=== PATIENT | male | born 1965 | race Caucasian/White ===

== ENCOUNTER → 2025-06-18 13:40 | Outpatient (CLI) | payer OTHER, SELFPAY ==
--- NOTE | 2025-06-18 13:48 | DI.RAD.S_ITS ---
PROCEDURE: XR LUMBAR SPINE MIN 4V INDICATIONS: please evaluate for lumbar and rib fracture TECHNIQUE: 5 views of the lumbar spine were acquired, including bilateral oblique views. COMPARISON: [facility], CR, XR RIBS LT MIN 3V W CXR1V, 06/18/2025, 13:49. FINDINGS: Bones: 5 nonrib-bearing vertebrae are present. There is normal bony alignment. No vertebral body compression fractures. No suspicious bony lesions. Multiple levels of degenerative change can be seen, including significant bridging endplate osteophytes on the left at the L2-L3 level. The disc heights are relatively well preserved. Lower lumbar spine facet arthropathy is seen. Soft tissues: Overlying bowel gas pattern is normal. No suspicious soft tissue calcifications. Atherosclerotic calcification is noted. Oblique images: No pars defects. IMPRESSION: No edith acute plain film abnormality is seen. Generalized degenerative changes are seen by plain film. Dictated by: Los Godoy M.D. on 06/18/2025 at 13:59 Approved by: Los Godoy M.D. on 06/18/2025 at 14:00
--- NOTE | 2025-06-18 13:48 | DI.RAD.S_ITS ---
PROCEDURE: XR RIBS LT MIN 3V W CXR1V INDICATIONS: Please evaluate for lumbar and rib fracture TECHNIQUE: 2 views of the ribs were acquired, along with a single view chest. COMPARISON: [facility], , XR LUMBAR SPINE MIN 4V, 06/18/2025, 13:49. FINDINGS: Surgical changes and devices: None. Bones and chest wall: A marker is placed upon the area of clinical concern. Within this region, no displaced rib fracture or other significant rib abnormality can be seen. No rib fractures are seen elsewhere. No suspicious bony lesions. Age-appropriate bony degenerative changes are seen. Overlying soft tissues appear unremarkable. Lungs and pleura: No pleural effusions or pneumothorax. Lungs appear clear. Mediastinum: Mediastinal contours appear normal. Heart size is normal. IMPRESSION: No displaced rib fracture or pneumothorax. Dictated by: Los Godoy M.D. on 06/18/2025 at 14:00 Approved by: Los Godoy M.D. on 06/18/2025 at 14:00
== END ==
PROVIDERS: Referring Provider Chiropractor; Visit Provider Chiropractor
DX: S30.0XXA Contusion of lower back and pelvis, initial encounter (principal); S29.8XXA Other specified injuries of thorax, initial encounter; M47.816 Spondylosis without myelopathy or radiculopathy, lumbar region; X58.XXXA Exposure to other specified factors, initial encounter
CPT/HCPCS: 71101; 72110

== ENCOUNTER → 2025-09-26 10:02 | Outpatient (CLI) | payer BC, SELFPAY | PROVIDERS: Family Provider Family Medicine; PCP Family Medicine; Referring Provider Family Medicine; Visit Provider Surgery | DX: T81.89XA Other complications of procedures, not elsewhere classified, initial encounter (principal); T86.828 Other complications of skin graft (allograft) (autograft); S81.802A Unspecified open wound, left lower leg, initial encounter; S01.401A Unspecified open wound of right cheek and temporomandibular area, initial encounter; C41.1 Malignant neoplasm of mandible | CPT/HCPCS: 11042; 11045; 87070; 87075; 87077; 87186; 87205; 99204; 99213 ==

== ENCOUNTER → 2025-09-27 10:30 | Outpatient (CLI) | payer BC, SELFPAY | PROVIDERS: Family Provider Family Medicine; PCP Family Medicine; Referring Provider Family Medicine; Visit Provider Physician Assistant | DX: T81.89XA Other complications of procedures, not elsewhere classified, initial encounter (principal); S01.402A Unspecified open wound of left cheek and temporomandibular area, initial encounter; S81.802A Unspecified open wound, left lower leg, initial encounter | CPT/HCPCS: 99213 ==

== ENCOUNTER → 2025-10-01 09:11 | Outpatient (CLI) | payer BC, SELFPAY | LOC: WC 09:12 | PROVIDERS: Family Provider Family Medicine; PCP Family Medicine; Referring Provider Family Medicine; Visit Provider Surgery | DX: T81.89XA Other complications of procedures, not elsewhere classified, initial encounter (principal); S01.402A Unspecified open wound of left cheek and temporomandibular area, initial encounter; S81.802A Unspecified open wound, left lower leg, initial encounter | CPT/HCPCS: 99213 ==

== ENCOUNTER → 2025-10-02 09:54 | Outpatient (CLI) | payer BC, SELFPAY | LOC: WC 10:14 | PROVIDERS: Family Provider Family Medicine; PCP Family Medicine; Referring Provider Family Medicine; Visit Provider Surgery | DX: T86.828 Other complications of skin graft (allograft) (autograft) (principal); S11.80XA Unspecified open wound of other specified part of neck, initial encounter; S81.802A Unspecified open wound, left lower leg, initial encounter; C41.1 Malignant neoplasm of mandible | CPT/HCPCS: 11042; 11045 ==

== ENCOUNTER → 2025-10-04 10:55 | Outpatient (CLI) | payer BC, SELFPAY | LOC: WC 10:56 | PROVIDERS: Family Provider Family Medicine; PCP Family Medicine; Referring Provider Family Medicine; Visit Provider Physician Assistant | DX: T81.89XA Other complications of procedures, not elsewhere classified, initial encounter (principal); S81.802A Unspecified open wound, left lower leg, initial encounter; S11.80XA Unspecified open wound of other specified part of neck, initial encounter | CPT/HCPCS: 99213 ==

== ENCOUNTER → 2025-10-07 10:50 | Outpatient (CLI) | payer BC, SELFPAY | LOC: WC 10:51 | PROVIDERS: PCP Family Medicine; Referring Provider Family Medicine; Visit Provider Surgery | DX: T81.89XA Other complications of procedures, not elsewhere classified, initial encounter (principal); S11.80XA Unspecified open wound of other specified part of neck, initial encounter; S81.802A Unspecified open wound, left lower leg, initial encounter | CPT/HCPCS: 99212 ==

== ENCOUNTER → 2025-10-08 10:01 | Outpatient (CLI) | payer BC, SELFPAY | LOC: WC 10:02 | PROVIDERS: PCP Family Medicine; Referring Provider Family Medicine; Visit Provider Surgery | DX: T81.89XA Other complications of procedures, not elsewhere classified, initial encounter (principal); S11.80XA Unspecified open wound of other specified part of neck, initial encounter; S81.801A Unspecified open wound, right lower leg, initial encounter | CPT/HCPCS: 99213 ==

== ENCOUNTER → 2025-10-09 11:58 | Outpatient (CLI) | payer BC, SELFPAY | LOC: WC 11:59 | PROVIDERS: PCP Family Medicine; Referring Provider Family Medicine; Visit Provider Surgery | DX: T81.89XA Other complications of procedures, not elsewhere classified, initial encounter (principal); S11.80XA Unspecified open wound of other specified part of neck, initial encounter; S81.802A Unspecified open wound, left lower leg, initial encounter; T86.828 Other complications of skin graft (allograft) (autograft); C41.1 Malignant neoplasm of mandible | CPT/HCPCS: 11042; 11045 ==

== ENCOUNTER → 2025-10-10 10:33 | Outpatient (CLI) | payer BC, SELFPAY | LOC: WC 10:34 | PROVIDERS: PCP Family Medicine; Referring Provider Family Medicine; Visit Provider Surgery | DX: T81.89XA Other complications of procedures, not elsewhere classified, initial encounter (principal); S11.80XA Unspecified open wound of other specified part of neck, initial encounter; S81.802A Unspecified open wound, left lower leg, initial encounter | CPT/HCPCS: 99212 ==

== ENCOUNTER → 2025-10-11 13:04 | Outpatient (CLI) | payer BC, SELFPAY | LOC: WC 13:05 | PROVIDERS: PCP Family Medicine; Referring Provider Family Medicine; Visit Provider Physician Assistant | DX: T81.89XA Other complications of procedures, not elsewhere classified, initial encounter (principal); S11.80XA Unspecified open wound of other specified part of neck, initial encounter; S81.802A Unspecified open wound, left lower leg, initial encounter | CPT/HCPCS: 99213 ==

== ENCOUNTER → 2025-10-14 15:04 | Outpatient (CLI) | payer BC, SELFPAY | LOC: WC 15:06 | PROVIDERS: PCP Family Medicine; Referring Provider Family Medicine; Visit Provider Surgery | DX: T81.89XA Other complications of procedures, not elsewhere classified, initial encounter (principal); S11.80XA Unspecified open wound of other specified part of neck, initial encounter; S81.802A Unspecified open wound, left lower leg, initial encounter | CPT/HCPCS: 99213 ==

== ENCOUNTER → 2025-10-15 10:18 | Outpatient (CLI) | payer BC, SELFPAY | LOC: WC 10:18 | PROVIDERS: PCP Family Medicine; Referring Provider Family Medicine; Visit Provider Surgery | DX: T81.89XA Other complications of procedures, not elsewhere classified, initial encounter (principal); T86.828 Other complications of skin graft (allograft) (autograft); S11.80XA Unspecified open wound of other specified part of neck, initial encounter; S81.802A Unspecified open wound, left lower leg, initial encounter; L92.8 Other granulomatous disorders of the skin and subcutaneous tissue; C41.1 Malignant neoplasm of mandible | CPT/HCPCS: 11042; 11045 ==

== ENCOUNTER → 2025-10-16 15:21 | Outpatient (CLI) | payer BC, SELFPAY ==
[2025-10-16 15:48] LABS: Add Manual Diff / Slide Review NO; Hematocrit 39.3 % (41-53); Hemoglobin 13.6 g/dL (13.5-17.5); Lymphocytes Absolute Auto 1600 /uL (1100-4500); Mean Corpuscular HGB Conc 34.6 % (30-36); Mean Corpuscular Hemoglobin 33.3 PG (26-34); Mean Corpuscular Volume 96.3 fL (80-100); Platelet Count 370 X10^3/uL (150-400)
[2025-10-16 17:59] LABS: Carcinoembryonic Antigen 1.6 ng/mL (0.1-3.0)
== END ==
PROVIDERS: PCP Family Medicine; Referring Provider Internal Medicine Hematology & Oncology; Visit Provider Internal Medicine Hematology & Oncology
DX: C06.9 Malignant neoplasm of mouth, unspecified (principal); C20 Malignant neoplasm of rectum
CPT/HCPCS: 36415; 82378; 85025

== ENCOUNTER → 2025-10-21 15:10 | Outpatient (CLI) | payer BC, SELFPAY | LOC: WC 15:11 | PROVIDERS: PCP Family Medicine; Referring Provider Family Medicine; Visit Provider Surgery | DX: S11.80XA Unspecified open wound of other specified part of neck, initial encounter (principal); S81.802A Unspecified open wound, left lower leg, initial encounter; T81.89XA Other complications of procedures, not elsewhere classified, initial encounter; T86.828 Other complications of skin graft (allograft) (autograft); L02.91 Cutaneous abscess, unspecified; C41.1 Malignant neoplasm of mandible; L53.8 Other specified erythematous conditions | CPT/HCPCS: 10140; 11042; 11045; 87070; 87075; 87205 ==

== ENCOUNTER → 2025-10-24 08:59 | Outpatient (CLI) | payer BC, SELFPAY | PROVIDERS: PCP Family Medicine; Referring Provider Family Medicine; Visit Provider Surgery | DX: S11.80XA Unspecified open wound of other specified part of neck, initial encounter (principal); S81.802A Unspecified open wound, left lower leg, initial encounter; T86.828 Other complications of skin graft (allograft) (autograft); L02.11 Cutaneous abscess of neck; C41.1 Malignant neoplasm of mandible; L53.8 Other specified erythematous conditions; R60.0 Localized edema | CPT/HCPCS: 11042; 11045; 99213 ==

== ENCOUNTER → 2025-10-31 11:34 | Outpatient (CLI) | payer BC, SELFPAY | LOC: WC 11:35 | PROVIDERS: PCP Family Medicine; Referring Provider Family Medicine; Visit Provider Surgery | DX: T81.89XA Other complications of procedures, not elsewhere classified, initial encounter (principal); L98.8 Other specified disorders of the skin and subcutaneous tissue; S81.802A Unspecified open wound, left lower leg, initial encounter; L02.11 Cutaneous abscess of neck; L53.9 Erythematous condition, unspecified; T86.828 Other complications of skin graft (allograft) (autograft) | CPT/HCPCS: 11042; 11045; 87070; 87075; 87077; 87186; 87205 ==

== ENCOUNTER → 2025-11-02 13:44 | Outpatient (CLI) | payer BC, SELFPAY ==
--- NOTE | 2025-11-02 13:45 | DI.CT.S_ITS ---
PROCEDURE: CT SOFT TISSUE NECK W CON INDICATIONS: swelling/abscess of anterior neck TECHNIQUE: After the administration of intravenous contrast, 3.0 mm axial sections acquired from the sella to the aortic arch. Additional oblique axial 3.0 mm sections acquired through the pharynx. 3 mm thick coronal and sagittal reformats were generated. For radiation dose reduction, the following was used: automated exposure control. COMPARISON: Outside Film, CT, CT SOFT TISSUE NECK WITH CONTRAST, 07/21/2025, 8:47. Outside Film, CT, CT CHEST WITH CONTRAST, 09/19/2025, 13:58. FINDINGS: Image quality: Excellent. Lymph nodes: Soft tissue nodule adjacent to the left ernestine mandible measuring 1.8 x 1.8 cm (). Right lower cervical level 4 lymph node measuring 1.5 cm in short axis is new compared to prior. Vessels: Visualized vasculature appears patent. Neck spaces: Significant postsurgical changes within the left neck. There is associated subcutaneous stranding and soft tissue thickening/scarring. Areas of hypoattenuation within the left muscles of mastication, best seen on coronal series 4, image 30. Ill-defined focus of hypoattenuation within the left sternocleidomastoid muscle (01/15) measuring up to 1 cm. The oropharynx, nasopharynx, and pharynx demonstrate no mucosal lesions. The vocal cords, false vocal cords, pyriform sinuses, epiglottis, vallecula, and tongue base all appear normal. Glands: The parotid and submandibular glands appear normal. Thyroid gland demonstrates no significant abnormality. Miscellaneous: Visualized brain and orbits appear normal. Lung apices demonstrate multifocal pulmonary nodules measure up to 1.4 cm. Increased in size compared to prior. Superficial soft tissues appear normal. Bones: There is been interval postsurgical changes from left mandibulectomy with fibular reconstruction. Old left lamina papyracea fracture. Mild sinus disease. Left mastoid air cell effusion. . IMPRESSION: Significant postsurgical changes in the left neck with mandibulectomy and fibular reconstruction. Associated subcutaneous stranding throughout the left neck which may be postsurgical in etiology. Ill-defined areas of low density within the muscles of mastication, unclear if this represents edema, postoperative changes or phlegmon. Attention on follow-up imaging. Scarring and postoperative changes in the left neck limits evaluation for recurrent disease. There is a 1.8 cm mass adjacent to the ernestine mandible concerning for recurrent disease or lymphadenopathy. Right cervical level 4 lymph node measuring 1.5 cm in short axis is new and concerning for metastatic disease. Additional area of hypoattenuation within the left superior sternocleidomastoid, attention on follow-up. Multifocal pulmonary nodules are increased in size compared to prior. Dictated by: Bernardo Felipe M.D. on 11/04/2025 at 13:27 Approved by: Bernardo Felipe M.D. on 11/04/2025 at 13:42
== END ==
LOC: CT 13:45
PROVIDERS: PCP Family Medicine; Referring Provider Family Medicine; Visit Provider Surgery
DX: C41.1 Malignant neoplasm of mandible (principal); L02.91 Cutaneous abscess, unspecified; R59.0 Localized enlarged lymph nodes; R91.8 Other nonspecific abnormal finding of lung field
CPT/HCPCS: 70491; Q9967

== ENCOUNTER 2025-11-04 10:11 | Emergency (ER) | payer BC, SELFPAY ==
[2025-11-04] VITALS (11 sets, daily range): BP systolic 103–132; BP diastolic 65–73; PULSE 52–83; RESP 12–21; TEMP 36.3; O2SAT 91–98
--- NOTE | 2025-11-04 10:41 | EKG_ITS ---
[facility] [address] [address] Test Date: 2025-11-04 Pat Name: Vahid Morris Department: [facility] Room: Gender: Male [employer]aging [employer] Operator: JUSTICE : 1965 Requested By: Order Number: [id number] Reading MD: Javier Valencia MD Measurements Intervals Carver Rate: 75 P: 60 NH: 154 QRS: 19 QRSD: 96 T: 51 QT: 368 QTc: 410 Interpretive Statements Normal sinus rhythm with sinus arrhythmia Electronically Signed On 11-04-2025 14:34:57 PST by Javier Valencia MD
--- NOTE | 2025-11-04 10:41 | DI.RAD.S_ITS ---
PROCEDURE: XR CHEST 1V INDICATIONS: Chest Pain TECHNIQUE: One view of the chest was acquired. COMPARISON: None. FINDINGS: Surgical changes and devices: Right chest wall Port-A-Cath. Lungs and pleura: Lungs are clear. No pleural effusions or pneumothorax. Mediastinum: Mediastinal contours appear normal. Heart size is normal. Bones and chest wall: No suspicious bony lesions. Overlying soft tissues appear unremarkable. IMPRESSION: No acute cardiopulmonary abnormality is seen. Dictated by: Bernardo Felipe M.D. on 11/04/2025 at 12:17 Approved by: Bernardo Felipe M.D. on 11/04/2025 at 12:17
--- NOTE | 2025-11-04 10:41 | PC.NURSE ---
Patient denies chest pain or shortness of breath at this time. I spoke with Dr. Evans who gave verbal order for cardiac workup.
[2025-11-04 11:04] LABS: Add Manual Diff / Slide Review NO; Hematocrit 41.5 % (41-53); Hemoglobin 14.4 g/dL (13.5-17.5); Lymphocytes Absolute Auto 1400 /uL (1100-4500); Mean Corpuscular HGB Conc 34.6 % (30-36); Mean Corpuscular Hemoglobin 32.8 PG (26-34); Mean Corpuscular Volume 94.8 fL (80-100); Platelet Count 367 X10^3/uL (150-400)
[2025-11-04 11:22] LABS: INR 1.0 (0.9-1.3); Prothrombin Time 11.8 SECONDS (9.4-12.5)
[2025-11-04 11:24] LABS: Alanine Aminotransferase 14 IU/L (<50); Alkaline Phosphatase 66 U/L (38-126); Blood Urea Nitrogen 17 mg/dL (9-20); Carbon Dioxide 27 mmol/L (22-32); Creatine Kinase 23 U/L (55-170); Estimated Glomerular Filt Rate > 60 mL/min (>60); HEMOLYSIS < 15 (0-50); PTT Partial Thromboplastin Tim 29 SECONDS (25.1-36.5)
[2025-11-04 11:27] LABS: Albumin 4.0 g/dL (3.5-5.0); Albumin Globulin Ratio 1.3 (1.0-2.8); Calcium 10.5 mg/dL (8.4-10.2); Chloride 100 mmol/L (98-107); Globulin 3.2 g/dL (1.7-4.1); Glucose 124 mg/dL (70-99); Lipase 37 U/L (23-300); Magnesium 2.0 mg/dL (1.6-2.3); Potassium 4.2 mmol/L (3.4-5.1); Sodium 136 mmol/L (137-145); Total Protein 7.2 g/dL (6.3-8.2)
--- NOTE | 2025-11-04 11:30 | ED_ITS ---
HPI - General Adult <Keon Bowling PA-C - Last Filed: 11/11/25 12:25> General Chief complaint: Dental/Oral Stated complaint: Right side jaw pain, Cancer patient Time Seen by Provider: 11/04/25 11:09 History of Present Illness HPI narrative: 60-year-old male with past medical history oral cancer, colorectal cancer, lung cancer presents to the ED with 10 days of right-sided dental pain. Patient localizes the pain to the right, upper, molar gum. No fever, chills, chest pain, shortness of breath, lightheadedness, dizziness, syncope. Patient is in significant pain. Patient states he occasionally takes hydrocodone, but mostly just takes Tylenol. Patient was wanting to go see a dentist today, however his family convinced him to come into the emergency department for further evaluation. Patient states that he has had intermittent shortness of breath, which he attributes to swelling from his left mouth and jaw, secretions. However, his shortness of breath resolves when those symptoms resolve as well. Patient is status post a left mandibulectomy that was performed in August. Patient is seen by wound care, a culture of the wound was obtained since there was a lump that developed on the right side of the neck incision. Culture grew Staphylococcus epidermidis. Patient also had a outpatient CT scan soft tissue neck 2 days ago, which Radiology is currently reading.. Related Data Home Medications ?Medication ?Instructions ?Recorded ?Confirmed doxycycline monohydrate 100 mg 100 mg PO BID 10/07/25 10/07/25 tablet oxycodone 5 mg tablet 5 mg PO 4XD PRN 10/07/25 Previous Rx's ?Medication ?Instructions ?Recorded hydrocodone 5 mg-acetaminophen 325 1 tab PO Q8H PRN erma tucker #30 tabs 08/29/25 mg tablet Disabled Parking Permit #1 ea 10/02/25 amoxicillin 875 mg-potassium 1 tab feeding tube Q12H 1 4 days 11/04/25 clavulanate 125 mg tablet #28 tabs hydromorphone 2 mg tablet 2 mg PO Q6H #30 tabs 5 (Dilaudid) ondansetron 4 mg disintegrating 4 mg PO Q6H PRN nausea and 11/07/25 tablet vomiting #30 tabs Allergies Allergy/AdvReac Type Severity Reaction Status Date / Time No Known Drug Allergies Allergy Verified 11/04/25 10:32 Review of Systems <Keon Bowling PA-C - Last Filed: 11/11/25 12:25> Constitutional Constitutional: Denies chills, Denies fatigue, Denies fever(s), Denies frequent falls, Denies lethargy and Denies weakness Comments: R sided jaw pain Eyes Eyes: Denies change in vision, Denies eye discharge, Denies irritation and Denies loss of vision ENT Ears, Nose, Mouth, and Throat: Denies change in voice, Denies dizziness, Denies neck pain, Denies sore throat and Denies throat swelling Cardiovascular Cardiovascular: Denies chest pain, Denies irregular heart rhythm, Denies lightheadedness, Denies palpitations, Denies dyspnea, Denies dyspnea on exertion and Denies orthopnea Respiratory Respiratory: Denies cough, Denies dyspnea, Denies dyspnea on exertion and Denies wheezing Gastrointestinal Gastrointestinal: Denies abdominal pain, Denies change in bowel habits, Denies diarrhea, Denies nausea and Denies vomiting Musculoskeletal Musculoskeletal: Denies neck pain and Denies numbness Integumentary/Breasts Skin/Breast: Denies pruritus, Denies erythema, Denies rash and Denies wounds Neurologic Neurologic: Denies behavioral changes, Denies confusion, Denies dizziness, Denies frequent falls, Denies loss of vision, Denies numbness and Denies weakness Psychiatric Psychiatric: Denies anxiety, Denies behavioral changes, Denies confusion, Denies depression, Denies homicidal ideation and Denies suicidal ideation Endocrine Endocrine: Denies fatigue, Denies flushing and Denies palpitations Hematologic/Lymphatic Hematologic/Lymphatic: Denies easy bruising Allergic/Immunologic Allergic/Immunologic: Denies urticaria, Denies throat swelling and Denies wheezing Patient History <Keon Bowling PA-C - Last Filed: 11/11/25 12:25> Smoking Status: Never smoker Exam <Keon Bowling PA-C - Last Filed: 11/11/25 12:25> Narrative Exam Narrative: Const General:?cooperative, healthy appearing and comfortable [facility] Head:?normal to inspection Ears:?hearing grossly normal bilaterally Nose:?external nose normal Face and sinus:? Patient is status post left jaw mandibulectomy. There is some swelling of the left jaw and left lips. Airway is patent. Mouth:?oral mucosae normal; no notable abscess, dental injuries in the right upper mouth. Throat:?posterior oropharynx normal Eyes General:?appearance normal, both eyes and all related structures Neck Neck:?normal visual inspection and no lymphadenopathy noted Resp Effort & Inspection:?normal respiratory effort Auscultation:?clear to auscultation bilaterally Cardio Rate:?regular rate Rhythm:?regular rhythm Integumentary There is a small bump on the right aspect of the neck incision. Unclear if abscess versus serous collection. Neuro General:?patient alert, patient awake and patient oriented x3 Initial Vital Signs Initial Vital Signs: Vital Signs Temperature 97.4 F L 11/04/25 10:28 Pulse Rate 83 11/04/25 10:28 Respiratory Rate 17 11/04/25 10:28 Blood Pressure 132/72 11/04/25 10:28 Pulse Oximetry 97 11/04/25 10:28 Oxygen Delivery Method Room Air 11/04/25 10:28 <Fartun Dukes MD - Last Filed: 11/05/25 02:08> Initial Vital Signs Initial Vital Signs: Vital Signs Temperature 97.4 F L 11/04/25 10:28 Pulse Rate 83 11/04/25 10:28 Respiratory Rate 17 11/04/25 10:28 Blood Pressure 132/72 11/04/25 10:28 Pulse Oximetry 97 11/04/25 10:28 Oxygen Delivery Method Room Air 11/04/25 10:28 Course <Keon Bowling PA-C - Last Filed: 11/11/25 12:25> Orders Ordered: Discontinued Medications Hydromorphone HCl (Hydromorphone 1 Mg/Ml Syringe) 1 mg IV NOW ONE Stop: 11/04/25 12:07 Last Admin: 11/04/25 12:22 Dose: 1 mg Documented By: LM Hydromorphone HCl (Hydromorphone 1 Mg/Ml Syringe) 1 mg IV NOW ONE Stop: 11/04/25 16:52 Last Admin: 11/04/25 17:28 Dose: 1 mg Documented By: BULL Vital Signs Vital signs: Vital Signs - 8 hr 11/04/25 10:28 11/04/25 10:46 11/04/25 10:49 Temperature 97.4 F L Pulse Rate 83 69 71 Respiratory Rate 17 20 Blood Pressure 132/72 Pulse Oximetry 97 94 94 Oxygen Delivery Method Room Air 11/04/25 10:49 11/04/25 11:00 11/04/25 11:00 Temperature Pulse Rate 75 Respiratory Rate 21 Blood Pressure 114/73 119/72 Pulse Oximetry 94 Oxygen Delivery Method <Fartun Dukes MD - Last Filed: 11/05/25 02:08> Orders Ordered: Discontinued Medications Hydromorphone HCl (Hydromorphone 1 Mg/Ml Syringe) 1 mg IV NOW ONE Stop: 11/04/25 12:07 Last Admin: 11/04/25 12:22 Dose: 1 mg Documented By: LM Hydromorphone HCl (Hydromorphone 1 Mg/Ml Syringe) 1 mg IV NOW ONE Stop: 11/04/25 16:52 Last Admin: 11/04/25 17:28 Dose: 1 mg Documented By: BULL Vital Signs Vital signs: Vital Signs - 8 hr 11/04/25 10:28 11/04/25 10:46 11/04/25 10:49 Temperature 97.4 F L Pulse Rate 83 69 71 Respiratory Rate 17 20 Blood Pressure 132/72 Pulse Oximetry 97 94 94 Oxygen Delivery Method Room Air 11/04/25 10:49 11/04/25 11:00 11/04/25 11:00 Temperature Pulse Rate 75 Respiratory Rate 21 Blood Pressure 114/73 119/72 Pulse Oximetry 94 Oxygen Delivery Method Medical Decision Making <Keon Bowling PA-C - Last Filed: 11/11/25 12:25> Lab Data 11/04/25 10:55 11/04/25 10:55 Labs: Lab Results 11/04/25 Range/Units 10:55 WBC 8.5 (4.5-11.0) X10^3/uL RBC 4.38 L (4.5-5.9) X10^6/uL Hgb 14.4 (13.5-17.5) g/dL Hct 41.5 (41-53) % MCV 94.8 (80-100) fL MCH 32.8 (26-34) PG MCHC 34.6 (30-36) % RDW 14.0 (11.6-14.8) % Plt Count 367 (150-400) X10^3/uL Neut % (Auto) 69.7 (50-75) % Lymph % (Auto) 16.9 L (25-40) % [place] % (Auto) 10.4 (3-14) % Eos % (Auto) 2.3 (2-4) % Baso % (Auto) 0.7 (0-2) % Neut # (Auto) 6000 (5843-3574) /uL Lymph # (Auto) 1400 (4191-2714) /uL [place] # (Auto) 900 (0-900) /uL Eos # (Auto) 200 (0-450) /uL Baso # (Auto) 100 (0-100) /uL PT 11.8 (9.4-12.5) SECONDS INR 1.0 (0.9-1.3) APTT 29 (25.1-36.5) SECONDS Sodium 136 L (137-145) mmol/L Potassium 4.2 (3.4-5.1) mmol/L Chloride 100 (98-107) mmol/L Carbon Dioxide 27 (22-32) mmol/L BUN 17 (9-20) mg/dL Creatinine 0.55 L (0.66-1.25) mg/dL Estimated GFR > 60 (>60) mL/min BUN/Creatinine Ratio 30.9 H (6-22) Glucose 124 H (70-99) mg/dL Calcium 10.5 H (8.4-10.2) mg/dL Magnesium 2.0 (1.6-2.3) mg/dL Total Bilirubin 0.3 (0.2-1.3) mg/dL AST 21 (17-59) IU/L ALT 14 (<50) IU/L Alkaline Phosphatase 66 (38-126) U/L Total Creatine Kinase 23 L (55-170) U/L Troponin I < 0.012 (0.01-0.034) ng/mL NT-Pro-B Natriuret Pep 63 (<125) pg/mL Total Protein 7.2 (6.3-8.2) g/dL Albumin 4.0 (3.5-5.0) g/dL Globulin 3.2 (1.7-4.1) g/dL Albumin/Globulin Ratio 1.3 (1.0-2.8) Lipase 37 (23-300) U/L [facility] Narrative Medical decision making narrative: 60-year-old male with past medical history oral cancer, colorectal cancer, lung cancer presents to the ED with 10 days of right-sided dental pain. Today's CT scan read from Radiology as follows: There appears to be a small skin defect within the submandibular soft tissues near midline with hyperdense material (2/57), this is new compared to recent prior. Recommend correlation with physical exam. Otherwise, no significant change is appreciated compared to recent prior CT from 11/02/2025. Again seen significant postsurgical changes within the left face with mandibulectomy and fibular reconstruction. Soft tissue nodule adjacent to the reconstruction concerning for lymphadenopathy or residual disease. Again seen areas of low attenuation in the left muscles of mastication which may represent edema, postsurgical changes or phlegmon. These are stable compared to prior. Again seen right lower cervical lymph node measuring 1.5 cm in short axis (255) which is new compared to or distant priors and concerning for metastatic disease. Attention on follow-up. Again seen multifocal pulmonary nodules which are also increased. CT scan obtained on 11/02/2025 was read by Radiology as follows. Significant postsurgical changes in the left neck with mandibulectomy and fibular reconstruction. Associated subcutaneous stranding throughout the left neck which may be postsurgical in etiology. Ill-defined areas of low density within the muscles of mastication, unclear if this represents edema, postoperative changes or phlegmon. Attention on follow-up imaging. Scarring and postoperative changes in the left neck limits evaluation for recurrent disease. There is a 1.8 cm mass adjacent to the ernestine mandible concerning for recurrent disease or lymphadenopathy. Right cervical level 4 lymph node measuring 1.5 cm in short axis is new and concerning for metastatic disease. Additional area of hypoattenuation within the left superior sternocleidomastoid, attention on follow-up. Multifocal pulmonary nodules are increased in size compared to prior. Labs were obtained, labs unremarkable. Given patient's symptoms of increased pain and CT changes, patient's oncologist Dr. Garland was consulted. Spoke on the telephone with Dr. Chun's colleague Dr. Shahid who is motion picture narrator today. He advises p.o. antibiotics and outpatient follow-up with Dr. Chun and his oral surgeon at [facility] as soon as possible. While patient was being discharged, Dr. Garland also telephoned and is in agreement with the plan. Antibiotics prescribed. Recommend patient continue taking pain medication for pain control. ED return precautions discussed with patient. He verbalized understanding. Medical records reviewed: Yes <Fartun Dukes MD - Last Filed: 11/05/25 02:08> Lab Data Labs: Lab Results 11/04/25 Range/Units 10:55 WBC 8.5 (4.5-11.0) X10^3/uL RBC 4.38 L (4.5-5.9) X10^6/uL Hgb 14.4 (13.5-17.5) g/dL Hct 41.5 (41-53) % MCV 94.8 (80-100) fL MCH 32.8 (26-34) PG MCHC 34.6 (30-36) % RDW 14.0 (11.6-14.8) % Plt Count 367 (150-400) X10^3/uL Neut % (Auto) 69.7 (50-75) % Lymph % (Auto) 16.9 L (25-40) % [place] % (Auto) 10.4 (3-14) % Eos % (Auto) 2.3 (2-4) % Baso % (Auto) 0.7 (0-2) % Neut # (Auto) 6000 (5045-2707) /uL Lymph # (Auto) 1400 (3793-2056) /uL [place] # (Auto) 900 (0-900) /uL Eos # (Auto) 200 (0-450) /uL Baso # (Auto) 100 (0-100) /uL PT 11.8 (9.4-12.5) SECONDS INR 1.0 (0.9-1.3) APTT 29 (25.1-36.5) SECONDS Sodium 136 L (137-145) mmol/L Potassium 4.2 (3.4-5.1) mmol/L Chloride 100 (98-107) mmol/L Carbon Dioxide 27 (22-32) mmol/L BUN 17 (9-20) mg/dL Creatinine 0.55 L (0.66-1.25) mg/dL Estimated GFR > 60 (>60) mL/min BUN/Creatinine Ratio 30.9 H (6-22) Glucose 124 H (70-99) mg/dL Calcium 10.5 H (8.4-10.2) mg/dL Magnesium 2.0 (1.6-2.3) mg/dL Total Bilirubin 0.3 (0.2-1.3) mg/dL AST 21 (17-59) IU/L ALT 14 (<50) IU/L Alkaline Phosphatase 66 (38-126) U/L Total Creatine Kinase 23 L (55-170) U/L Troponin I < 0.012 (0.01-0.034) ng/mL NT-Pro-B Natriuret Pep 63 (<125) pg/mL Total Protein 7.2 (6.3-8.2) g/dL Albumin 4.0 (3.5-5.0) g/dL Globulin 3.2 (1.7-4.1) g/dL Albumin/Globulin Ratio 1.3 (1.0-2.8) Lipase 37 (23-300) U/L Discharge Plan Departure Patient Disposition: Home Clinical Impression: Jaw pain Instructions: Surgical Site Infection Activity Restrictions/Additional Instructions: You were evaluated in the emergency department today for right-sided jaw pain. The the radiologist did comment on some changes in your CT scan that was obtained 2 days ago, which could signify infection as well as some other changes. Dr. Shahid from oncology at [facility], who is a colleague of Dr. Garland was consulted and he recommends starting oral antibiotics for the infection. He would like you to follow-up with Dr. Garland as soon as possible as well as your oral surgeon at [facility]. Return to the ED if you have worsening symptoms. Prescriptions: New amoxicillin-pot clavulanate 875-125 mg tablet 1 tab feeding tube Q12H 14 Days Qty: 28 0RF No Action hydrocodone-acetaminophen 5-325 mg tablet 1 tab PO Q8H PRN (Reason: pain) Qty: 30 0RF doxycycline monohydrate 100 mg tablet 100 mg PO BID oxycodone 5 mg tablet 5 mg PO 4XD PRN (DME) Disabled Parking Permit See Rx Instructions .ROUTE .MEDSUPPLY Qty: 1 0RF Rx Instructions: I find this person to be disabled hydromorphone [Dilaudid] 2 mg tablet 2 mg PO Q6H Qty: 30 0RF ondansetron 4 mg tablet,disintegrating 4 mg PO Q6H PRN (Reason: nausea and vomiting) Qty: 30 2RF Referrals: Sunshine Snow MD [Primary Care Provider, [facility]] Stand Alone Forms: Patient Portal/API ED Sign-out <Fartun Dukes MD - Last Filed: 11/05/25 02:08> Cosign ED Attending Coscadeature Attestation: I was immediately available in the department for consultation throughout this patient's visit. Patient was seen and evaluated, chart was reviewed, discussed with provider as well as consulting oncologist. Agree with the plan as outlined above Fartun Dukes MD
[2025-11-04 11:36] LABS: NT-proBNP (BNP-Adult 18+) 63 pg/mL (<125); Troponin I < 0.012 ng/mL (0.01-0.034)
--- NOTE | 2025-11-04 13:08 | DI.CT.S_ITS ---
PROCEDURE: CT SOFT TISSUE NECK W CON INDICATIONS: S/p L mandibulectomy; today R jaw pain TECHNIQUE: After the administration of intravenous contrast, 3.0 mm axial sections acquired from the sella to the aortic arch. Additional oblique axial 3.0 mm sections acquired through the pharynx. 3 mm thick coronal and sagittal reformats were generated. For radiation dose reduction, the following was used: automated exposure control. COMPARISON: [facility], CT, CT SOFT TISSUE NECK W CON, 11/02/2025, 13:50. FINDINGS/IMPRESSION: There appears to be a small skin defect within the submandibular soft tissues near midline with hyperdense material (), this is new compared to recent prior. Recommend correlation with physical exam. Otherwise, no significant change is appreciated compared to recent prior CT from 11/02/2025. Again seen significant postsurgical changes within the left face with mandibulectomy and fibular reconstruction. Soft tissue nodule adjacent to the reconstruction concerning for lymphadenopathy or residual disease. Again seen areas of low attenuation in the left muscles of mastication which may represent edema, postsurgical changes or phlegmon. These are stable compared to prior. Again seen right lower cervical lymph node measuring 1.5 cm in short axis () which is new compared to or distant priors and concerning for metastatic disease. Attention on follow-up. Again seen multifocal pulmonary nodules which are also increased. Dictated by: Bernardo Felipe M.D. on 11/04/2025 at 14:53 Approved by: Bernardo Felipe M.D. on 11/04/2025 at 14:58
== END 2025-11-04 17:41 | disposition home or self-care (01) ==
PROVIDERS: Emergency Medicine; Emergency Provider Student in an Organized Health Care Education/Training Program; PCP Family Medicine
DX: K08.89 Other specified disorders of teeth and supporting structures (principal); R68.84 Jaw pain; R06.02 Shortness of breath
CPT/HCPCS: 36415; 70491; 71045; 80053; 82550; 83690; 83735; 83880; 84484; 85025; 85610; 85730; 93005; 93010; 96374; 96375; 99284; J1171; Q9967

== ENCOUNTER → 2025-11-07 09:06 | Outpatient (CLI) | payer BC, SELFPAY | LOC: WC 09:14 | PROVIDERS: PCP Family Medicine; Referring Provider Family Medicine; Visit Provider Surgery | DX: T81.89XA Other complications of procedures, not elsewhere classified, initial encounter (principal); L98.8 Other specified disorders of the skin and subcutaneous tissue; S81.802A Unspecified open wound, left lower leg, initial encounter; S11.80XA Unspecified open wound of other specified part of neck, initial encounter; R60.0 Localized edema; L53.9 Erythematous condition, unspecified; L08.9 Local infection of the skin and subcutaneous tissue, unspecified | CPT/HCPCS: 11042; 11045 ==

== ENCOUNTER 2025-11-10 17:39 | Emergency (ER) | payer BC, SELFPAY ==
[2025-11-10] VITALS (8 sets, daily range): BP systolic 119–121; BP diastolic 70–79; PULSE 57–78; RESP 18; TEMP 36.4; O2SAT 89–97; BMI 26.6
--- NOTE | 2025-11-10 17:56 | DI.RAD.S_ITS ---
PROCEDURE: XR KUB INDICATIONS: feeding tube placement TECHNIQUE: One view of the abdomen acquired. COMPARISON: None. FINDINGS AND IMPRESSION: Left upper quadrant percutaneous feeding tube is seen in expected position. Injected contrast is seen outlining the duodenum and stomach. No specific radiographic signs for obstruction. [id number] colonic fecal loading. Partially seen central line in the chest. Dictated by: Peter Ramírez M.D. on 11/10/2025 at 20:54 Approved by: Peter Ramírez M.D. on 11/10/2025 at 20:54
--- NOTE | 2025-11-10 17:57 | ED.ABDPAIN ---
HPI - Abdominal Pain General Chief Complaint: Abdominal Pain Stated Complaint: feeding tube issue Time Seen by Provider: 11/10/25 17:50 Source: patient and family Mode of arrival: Ambulatory History of Present Illness HPI narrative: 60-year-old male with a history of head neck cancer has a feeding tube that is spilling out some material in the abdomen area. Patient and partner admit to sticking objects in the catheter area possibly deflating the balloon to keep it in place. Patient is in minimal pain approximately 4/10. No fever no chills no other symptoms. Related Data Home Medications ?Medication ?Instructions ?Recorded ?Confirmed doxycycline monohydrate 100 mg 100 mg PO BID 10/07/25 10/07/25 tablet oxycodone 5 mg tablet 5 mg PO 4XD PRN 10/07/25 10/07/25 Previous Rx's ?Medication ?Instructions ?Recorded hydrocodone 5 mg-acetaminophen 325 1 tab PO Q8H PRN pain #30 tabs 08/29/25 mg tablet Disabled Parking Permit #1 ea 10/02/25 amoxicillin 875 mg-potassium 1 tab feeding tube Q12H 14 days 11/04/25 clavulanate 125 mg tablet #28 tabs hydromorphone 2 mg tablet 2 mg PO Q6H #30 tabs 11/07/25 (Dilaudid) ondansetron 4 mg disintegrating 4 mg PO Q6H PRN nausea and 11/07/25 tablet vomiting #30 tabs Allergies Allergy/AdvReac Type Severity Reaction Status Date / Time No Known Drug Allergies Allergy Verified 11/04/25 10:32 Review of Systems Review of Systems ROS Unobtainable: All systems reviewed & are unremarkable except as noted in HPI and below Exam Narrative Exam Narrative: General: Patient appears to be in no acute distress, acting appropriately Head: normocephalic, atraumatic, HEENT: Pupils equal round reactive, eyes tracking well, neck supple, no JVD Heart: regular rate and rhythm, no murmurs, rubs, or gallops heard Lungs: clear to auscultation, no adventitious sounds Abdomen: soft , nontender, nondistended, positive bowel sounds, little bit of pinkish material that looks like tylenol around umbilcal area Neurological: no focal neurological signs, moving all extremities well, alert and oriented x3, Psych: good judgment ,good insight, mood is normal. Initial Vital Signs Initial Vital Signs: Vital Signs Temperature 97.6 F 11/10/25 17:49 Pulse Rate 75 11/10/25 17:49 Respiratory Rate 18 11/10/25 17:49 Blood Pressure 119/70 11/10/25 17:49 Pulse Oximetry 96 11/10/25 17:49 Oxygen Delivery Method Room Air 11/10/25 17:49 Course Orders Ordered: ED Orders 11/10/25 17:56 XR KUB Stat Discontinued Medications Hydromorphone HCl (Hydromorphone 1 Mg/Ml Syringe) 2 mg IV NOW ONE Stop: 11/10/25 18:06 Last Admin: 11/10/25 18:27 Dose: Not Given Documented By: KAUSHIK Hydromorphone HCl (Hydromorphone 1 Mg/Ml Syringe) 1 mg IV NOW ONE Stop: 11/10/25 18:26 Last Admin: 11/10/25 18:26 Dose: 1 mg Documented By: KAUSHIK Hydromorphone HCl (Hydromorphone 1 Mg/Ml Syringe) 1 mg IV NOW ONE Stop: 11/10/25 18:54 Last Admin: 11/10/25 18:55 Dose: 1 mg Documented By: KASEY Lidocaine/Prilocaine (Lidocaine/Prilocaine 5 Gm) 5 gm TOP NOW ONE Stop: 11/10/25 18:33 Last Admin: 11/10/25 18:40 Dose: 5 gm Documented By: KASEY Vital Signs Vital signs: Vital Signs - 8 hr 11/10/25 18:21 11/10/25 18:30 11/10/25 19:00 Pulse Rate 74 71 78 Blood Pressure Pulse Oximetry 96 97 94 Oxygen Delivery Method 11/10/25 19:30 11/10/25 20:00 11/10/25 20:30 Pulse Rate 63 57 L 63 Blood Pressure Pulse Oximetry 91 89 L 93 Oxygen Delivery Method 11/10/25 21:30 11/10/25 21:30 Pulse Rate 65 Blood Pressure 121/79 Pulse Oximetry 96 Oxygen Delivery Method Room Air MDM - Abdominal Pain Imaging Data Abdominal x-ray: Radiologist's Impression: Left upper quadrant percutaneous feeding tube is seen in expected position. Injected contrast is seen outlining the duodenum and stomach. No specific radiographic signs for obstruction. [id number] colonic fecal loading. Partially seen central line in the chest. MDM Narrative Medical decision making narrative: 60-year-old male with concerns about his feeding tube being displaced. There seems to be some overflow of medicine around the feeding tube area. Patient his partner admit to trying to unclog the catheter on their own. It appeared as if the balloon was deflated. Initially a larger feeding tube was attempted to be replaced with the smaller feeding tube but was unsuccessful. Finally decided to reuse the original feeding tube and use a little bit of sterile saline along to reinflate the balloon using a syringe. It was successful and the x-ray along with some radiographic material did show that the percutaneous feeding tube is seen in the expected position and the contrast is outlining the duodenum and the stomach. Advised to follow up with their GI physician and surgeon as planned. Discharge Plan Departure Patient Disposition: Home Clinical Impression: Complication of feeding tube Instructions: How to Use Your Feeding Tube Activity Restrictions/Additional Instructions: Follow up with general surgery as planned. May want to follow up with GI as well call on Tuesday. Can come back sooner if having any complications of her feeding tube. Prescriptions: No Action hydrocodone-acetaminophen 5-325 mg tablet 1 tab PO Q8H PRN (Reason: pain) Qty: 30 0RF doxycycline monohydrate 100 mg tablet 100 mg PO BID oxycodone 5 mg tablet 5 mg PO 4XD PRN (DME) Disabled Parking Permit See Rx Instructions .ROUTE .MEDSUPPLY Qty: 1 0RF Rx Instructions: I find this person to be disabled hydromorphone [Dilaudid] 2 mg tablet 2 mg PO Q6H Qty: 30 0RF ondansetron 4 mg tablet,disintegrating 4 mg PO Q6H PRN (Reason: nausea and vomiting) Qty: 30 2RF amoxicillin-pot clavulanate 875-125 mg tablet 1 tab feeding tube Q12H 14 Days Qty: 28 0RF Referrals: Sunshine Snow MD [Primary Care Provider, Family Practice] Stand Alone Forms: Patient Portal/API
[2025-11-10] MEDS: LIDOCAINE/PRILOCAINE 5 GM TOP (18:40)
--- NOTE | 2025-11-10 19:07 | PC.NURSE ---
Pt's PEG tube dislodged and balloon was deflated. Attempted to replace Pt's PEG tube with a new one. The new PEG was too large. Pt's PEG tube replaced and refilled with sterile water. We will wait to see if the baloon holds and then verify placement with KUB.
== END 2025-11-10 21:34 | disposition home or self-care (01) ==
PROVIDERS: Emergency Provider Family Medicine; PCP Family Medicine
DX: K94.29 Other complications of gastrostomy (principal)
CPT/HCPCS: 74018; 96374; 99283; 99284; J1171

== ENCOUNTER → 2025-11-18 15:34 | Outpatient (CLI) | payer BC, SELFPAY | PROVIDERS: PCP Family Medicine; Referring Provider Family Medicine; Visit Provider Surgery | DX: S81.802A Unspecified open wound, left lower leg, initial encounter (principal); S11.80XA Unspecified open wound of other specified part of neck, initial encounter; T86.828 Other complications of skin graft (allograft) (autograft); L02.11 Cutaneous abscess of neck; C41.1 Malignant neoplasm of mandible | CPT/HCPCS: 11042; 11045; 97597 ==

== ENCOUNTER 2025-11-18 18:31 | Emergency (ER) | payer BC, SELFPAY ==
[2025-11-18] VITALS (14 sets, daily range): BP systolic 132–139; BP diastolic 72–86; PULSE 62–90; RESP 15–24; TEMP 36.6; O2SAT 91–98; BMI 26.9
--- NOTE | 2025-11-18 18:53 | ED_ITS ---
HPI - SOB/Dyspnea <Stephanie Huffman MD - Last Filed: 11/20/25 00:43> General Chief Complaint: Shortness of Breath/Dyspnea Stated Complaint: sob/throat lac Time Seen by Provider: 11/18/25 18:42 Source: patient Mode of arrival: Ambulatory Limitations: no limitations History of Present Illness HPI Narrative: Patient is a 60-year-old male presents with 1 day of nasal congestion, rhinorrhea, and cough. His past medical history is significant for squamous cell carcinoma of the oropharynx, colorectal cancer, and lung cancer. He is status post left mandibulectomy performed in August and recently underwent an excisional biopsy of a right sided neck mass. He reports new tongue swelling that began 5 days ago. He took one dose of diphenhydramine at 5:00 p.m. without symptomatic relief. He denies exposure to new foods, denies tongue biting, and has no history of ALIX inhibitor use. He notes that he recently received a new chemotherapy infusion. He denies respiratory distress. The patient states the tongue swelling began spontaneously, has been waxing and waning, and he is unsure of any triggers or alleviating factors. He was previously able to speak but now communicates via whiteboard due to swelling. He denies urticaria, nausea, vomiting, abdominal pain, or diarrhea. He also denies chest pain, diaphoresis, nausea, or vomiting. Related Data Home Medications ?Medication ?Instructions ?Recorded ?Confirmed doxycycline monohydrate 100 mg 100 mg PO BID 10/07/25 10/07/25 tablet oxycodone 5 mg tablet 5 mg PO 4XD PRN 10/07/25 pembrolizumab 25 mg/mL intravenous 200 mg IV Q3W 11/18 solution (Keytruda) Previous Rx's ?Medication ?Instructions ?Recorded hydrocodone 5 mg-acetaminophen 325 1 tab PO Q8H PRN pa in #30 tabs 08/29/25 mg tablet Disabled Parking Permit #1 ea 10/02/25 ondansetron 4 mg disintegrating 4 mg PO Q6H PRN nausea and 11/07/25 tablet vomiting #30 tabs hydromorphone 2 mg tablet 1 - 2 mg (0.5 - 1 x 2 mg) PO Q8H 11/15/25 (Dilaudid) PRN pain #30 tabs Allergies Allergy/AdvReac Type Severity Reaction Status Date / Time No Known Drug Allergies Allergy Verified 11/04/25 10:32 Review of Systems <Stephanie Huffman MD - Last Filed: 11/20/25 00:43> Review of Systems Narrative: See HPI. Patient History <Stephanie Huffman MD - Last Filed: 11/20/25 00:43> Social History Smoking Status: Former smoker Smoking Status: Former smoker Exam <Stephanie Huffman MD - Last Filed: 11/20/25 00:43> Narrative Exam Narrative: Vitals: ?Afebrile, all other vitals within normal range, patient has to communicate via whiteboard Gen: ?Well-developed, well-nourished, no acute distress Cards: ?Regular, no murmurs, rubs, gallops Pulm: ?No increased work of breathing, coarse breath sounds in all lung adkins Abd: ?Soft, nondistended, nontender to palpation, feeding tube in mid abdomen Ext:? No edema in bilateral lower extremities Neuro: ?A&O x4, cranial nerves grossly intact, he does have a left facial droop that is unchanged since after the tumor incision, moving all 4 extremities spontaneously Psych: ?Appropriate Initial Vital Signs Initial Vital Signs: Vital Signs Temperature 98 F 11/18/25 18:44 Pulse Rate 90 11/18/25 18:44 Respiratory Rate 18 11/18/25 18:44 Blood Pressure 132/78 11/18/25 18:44 Pulse Oximetry 98 11/18/25 18:44 Oxygen Delivery Method Room Air 11/18/25 18:44 <Vaibhav Clark MD - Last Filed: 11/19/25 17:05> Initial Vital Signs Initial Vital Signs: Vital Signs Temperature 98 F 11/18/25 18:44 Pulse Rate 90 11/18/25 18:44 Respiratory Rate 18 11/18/25 18:44 Blood Pressure 132/78 11/18/25 18:44 Pulse Oximetry 98 11/18/25 18:44 Oxygen Delivery Method Room Air 11/18/25 18:44 <Holley Stanton DO - Last Filed: 11/19/25 11:15> Initial Vital Signs Initial Vital Signs: Vital Signs Temperature 98 F 11/18/25 18:44 Pulse Rate 90 11/18/25 18:44 Respiratory Rate 18 11/18/25 18:44 Blood Pressure 132/78 11/18/25 18:44 Pulse Oximetry 98 11/18/25 18:44 Oxygen Delivery Method Room Air 11/18/25 18:44 Course <Stephanie Huffman MD - Last Filed: 11/20/25 00:43> Orders Ordered: Discontinued Medications Albuterol/Ipratropium (Albuterol/Ipratropium 3 Ml Ampul) 9 ml INH NOW ONE Stop: 11/18/25 21:42 Last Admin: 11/18/25 22:24 Dose: 9 ml Documented By: JASMYN Dexamethasone (Dexamethasone 10 Mg/Ml Vial) 10 mg IV NOW ONE Stop: 11/19/25 01:51 Last Admin: 11/19/25 02:17 Dose: 10 mg Documented By: BULL Dexamethasone (Dexamethasone 10 Mg/Ml Vial) 10 mg IV Q6H [facility] Last Admin: 11/19/25 08:43 Dose: 10 mg Documented By: LESLIE Diphenhydramine HCl (Diphenhydramine 25 Mg Tablet) 25 mg PO NOW ONE Stop: 11/18/25 19:18 Last Admin: 11/18/25 19:30 Dose: Not Given Documented By: BULL Diphenhydramine HCl (Diphenhydramine 50 Mg/Ml Vial) 25 mg IV NOW ONE Stop: 11/18/25 19:31 Last Admin: 11/18/25 19:40 Dose: 25 mg Documented By: DEEP Epinephrine (Racepinephrine 0.5 Ml Neb) 0.5 ml INH NOW ONE Stop: 11/19/25 02:58 Last Admin: 11/19/25 03:24 Dose: 0.5 ml Documented By: JASMYN Famotidine (Famotidine 20 Mg/2 Ml Vial) 20 mg IV NOW [facility] Last Admin: 11/19/25 02:17 Dose: 20 mg Documented By: BULL Hydromorphone HCl (Hydromorphone 1 Mg/Ml Syringe) 1 mg IV NOW ONE Stop: 11/19/25 10:02 Last Admin: 11/19/25 10:07 Dose: 1 mg Documented By: LESLIE Hydromorphone HCl (Hydromorphone 1 Mg/Ml Syringe) 1 mg IV NOW ONE Stop: 11/19/25 11:00 Last Admin: 11/19/25 11:02 Dose: 1 mg Documented By: SADIA Tranexamic Acid 1,000 mg/ (Sodium Chloride) 100 mls @ 200 mls/hr IV NOW ONE Stop: 11/19/25 03:03 Last Admin: 11/19/25 04:40 Dose: Not Given Documented By: JIMENA Tranexamic Acid 1,000 mg/ (Sodium Chloride) 100 mls @ 200 mls/hr IV NOW ONE Stop: 11/19/25 05:07 Last Infusion: 11/19/25 05:47 Dose: Infused Documented By: Admin: 11/19/25 04:45 Dose: 200 mls/hr Documented By: BULL Sodium Chloride (Normal Saline 0.9%) 1,000 mls @ 100 mls/hr IV CONT SUSAN Last Infusion: 11/19/25 10:44 Dose: 0 mls/hr Documented By: Admin: 11/19/25 08:42 Dose: 100 mls/hr Documented By: LESLIE Methylprednisolone (Methylprednisolone Succ 40 Mg/Ml Vial) 40 mg INJ NOW ONE Stop: 11/18/25 19:18 Last Admin: 11/18/25 19:41 Dose: 40 mg Documented By: DEEP Methylprednisolone (Methylprednisolone Succ 125 Mg/2 Ml Vial) 60 mg IV NOW ONE Stop: 11/19/25 05:20 Methylprednisolone (Methylprednisolone Succ 125 Mg/2 Ml Vial) 125 mg IV NOW ONE Stop: 11/19/25 05:21 Last Admin: 11/19/25 05:50 Dose: 125 mg Documented By: DEEP Vital Signs Vital signs: Vital Signs - 8 hr 11/19/25 09:30 11/19/25 09:30 11/19/25 10:00 Pulse Rate 65 Blood Pressure 136/78 121/93 H Pulse Oximetry 96 11/19/25 10:00 Pulse Rate 63 Blood Pressure Pulse Oximetry 95 <Vaibhav Clark MD - Last Filed: 11/19/25 17:05> Orders Ordered: Discontinued Medications Albuterol/Ipratropium (Albuterol/Ipratropium 3 Ml Ampul) 9 ml INH NOW ONE Stop: 11/18/25 21:42 Last Admin: 11/18/25 22:24 Dose: 9 ml Documented By: JASMYN Dexamethasone (Dexamethasone 10 Mg/Ml Vial) 10 mg IV NOW ONE Stop: 11/19/25 01:51 Last Admin: 11/19/25 02:17 Dose: 10 mg Documented By: BULL Dexamethasone (Dexamethasone 10 Mg/Ml Vial) 10 mg IV Q6H [facility] Last Admin: 11/19/25 08:43 Dose: 10 mg Documented By: LESLIE Diphenhydramine HCl (Diphenhydramine 25 Mg Tablet) 25 mg PO NOW ONE Stop: 11/18/25 19:18 Last Admin: 11/18/25 19:30 Dose: Not Given Documented By: BULL Diphenhydramine HCl (Diphenhydramine 50 Mg/Ml Vial) 25 mg IV NOW ONE Stop: 11/18/25 19:31 Last Admin: 11/18/25 19:40 Dose: 25 mg Documented By: DEEP Epinephrine (Racepinephrine 0.5 Ml Neb) 0.5 ml INH NOW ONE Stop: 11/19/25 02:58 Last Admin: 11/19/25 03:24 Dose: 0.5 ml Documented By: JASMYN Famotidine (Famotidine 20 Mg/2 Ml Vial) 20 mg IV NOW [facility] Last Admin: 11/19/25 02:17 Dose: 20 mg Documented By: BULL Hydromorphone HCl (Hydromorphone 1 Mg/Ml Syringe) 1 mg IV NOW ONE Stop: 11/19/25 10:02 Last Admin: 11/19/25 10:07 Dose: 1 mg Documented By: LESLIE Hydromorphone HCl (Hydromorphone 1 Mg/Ml Syringe) 1 mg IV NOW ONE Stop: 11/19/25 11:00 Last Admin: 11/19/25 11:02 Dose: 1 mg Documented By: SADIA Tranexamic Acid 1,000 mg/ (Sodium Chloride) 100 mls @ 200 mls/hr IV NOW ONE Stop: 11/19/25 03:03 Last Admin: 11/19/25 04:40 Dose: Not Given Documented By: JIMENA Tranexamic Acid 1,000 mg/ (Sodium Chloride) 100 mls @ 200 mls/hr IV NOW ONE Stop: 11/19/25 05:07 Last Infusion: 11/19/25 05:47 Dose: Infused Documented By: Admin: 11/19/25 04:45 Dose: 200 mls/hr Documented By: BULL Sodium Chloride (Normal Saline 0.9%) 1,000 mls @ 100 mls/hr IV CONT [facility] Last Infusion: 11/19/25 10:44 Dose: 0 mls/hr Documented By: Admin: 11/19/25 08:42 Dose: 100 mls/hr Documented By: LESLIE Methylprednisolone (Methylprednisolone Succ 40 Mg/Ml Vial) 40 mg INJ NOW ONE Stop: 11/18/25 19:18 Last Admin: 11/18/25 19:41 Dose: 40 mg Documented By: DEEP Methylprednisolone (Methylprednisolone Succ 125 Mg/2 Ml Vial) 60 mg IV NOW ONE Stop: 11/19/25 05:20 Methylprednisolone (Methylprednisolone Succ 125 Mg/2 Ml Vial) 125 mg IV NOW ONE Stop: 11/19/25 05:21 Last Admin: 11/19/25 05:50 Dose: 125 mg Documented By: DEEP Vital Signs Vital signs: Vital Signs - 8 hr 11/19/25 09:30 11/19/25 09:30 11/19/25 10:00 Pulse Rate 65 Blood Pressure 136/78 121/93 H Pulse Oximetry 96 11/19/25 10:00 Pulse Rate 63 Blood Pressure Pulse Oximetry 95 <Holley Stanton, DO - Last Filed: 11/19/25 11:15> Orders Ordered: Discontinued Medications Albuterol/Ipratropium (Albuterol/Ipratropium 3 Ml Ampul) 9 ml INH NOW ONE Stop: 11/18/25 21:42 Last Admin: 11/18/25 22:24 Dose: 9 ml Documented By: JASMYN Dexamethasone (Dexamethasone 10 Mg/Ml Vial) 10 mg IV NOW ONE Stop: 11/19/25 01:51 Last Admin: 11/19/25 02:17 Dose: 10 mg Documented By: BULL Dexamethasone (Dexamethasone 10 Mg/Ml Vial) 10 mg IV Q6H [facility] Last Admin: 11/19/25 08:43 Dose: 10 mg Documented By: LESLIE Diphenhydramine HCl (Diphenhydramine 25 Mg Tablet) 25 mg PO NOW ONE Stop: 11/18/25 19:18 Last Admin: 11/18/25 19:30 Dose: Not Given Documented By: BULL Diphenhydramine HCl (Diphenhydramine 50 Mg/Ml Vial) 25 mg IV NOW ONE Stop: 11/18/25 19:31 Last Admin: 11/18/25 19:40 Dose: 25 mg Documented By: DEEP Epinephrine (Racepinephrine 0.5 Ml Neb) 0.5 ml INH NOW ONE Stop: 11/19/25 02:58 Last Admin: 11/19/25 03:24 Dose: 0.5 ml Documented By: JASMYN Famotidine (Famotidine 20 Mg/2 Ml Vial) 20 mg IV NOW [facility] Last Admin: 11/19/25 02:17 Dose: 20 mg Documented By: BULL Hydromorphone HCl (Hydromorphone 1 Mg/Ml Syringe) 1 mg IV NOW ONE Stop: 11/19/25 10:02 Last Admin: 11/19/25 10:07 Dose: 1 mg Documented By: LESLIE Hydromorphone HCl (Hydromorphone 1 Mg/Ml Syringe) 1 mg IV NOW ONE Stop: 11/19/25 11:00 Last Admin: 11/19/25 11:02 Dose: 1 mg Documented By: SADIA Tranexamic Acid 1,000 mg/ (Sodium Chloride) 100 mls @ 200 mls/hr IV NOW ONE Stop: 11/19/25 03:03 Last Admin: 11/19/25 04:40 Dose: Not Given Documented By: JIMENA Tranexamic Acid 1,000 mg/ (Sodium Chloride) 100 mls @ 200 mls/hr IV NOW ONE Stop: 11/19/25 05:07 Last Infusion: 11/19/25 05:47 Dose: Infused Documented By: Admin: 11/19/25 04:45 Dose: 200 mls/hr Documented By: BULL Sodium Chloride (Normal Saline 0.9%) 1,000 mls @ 100 mls/hr IV CONT [facility] Last Infusion: 11/19/25 10:44 Dose: 0 mls/hr Documented By: Admin: 11/19/25 08:42 Dose: 100 mls/hr Documented By: LESLIE Methylprednisolone (Methylprednisolone Succ 40 Mg/Ml Vial) 40 mg INJ NOW ONE Stop: 11/18/25 19:18 Last Admin: 11/18/25 19:41 Dose: 40 mg Documented By: DEEP Methylprednisolone (Methylprednisolone Succ 125 Mg/2 Ml Vial) 60 mg IV NOW ONE Stop: 11/19/25 05:20 Methylprednisolone (Methylprednisolone Succ 125 Mg/2 Ml Vial) 125 mg IV NOW ONE Stop: 11/19/25 05:21 Last Admin: 11/19/25 05:50 Dose: 125 mg Documented By: DEEP Vital Signs Vital signs: Vital Signs - 8 hr 11/19/25 09:30 11/19/25 09:30 11/19/25 10:00 Pulse Rate 65 Blood Pressure 136/78 121/93 H Pulse Oximetry 96 11/19/25 10:00 Pulse Rate 63 Blood Pressure Pulse Oximetry 95 MDM - SOB/Dyspnea <Stephanie Huffman MD - Last Filed: 11/20/25 00:43> Lab Data 11/18/25 19:06 11/18/25 19:40 Labs: Lab Results 11/18/25 11/18/25 11/18/25 Range/Units 19:00 19:06 19:40 WBC 11.2 H (4.5-11.0) X10^3/uL RBC 4.40 L (4.5-5.9) X10^6/uL Hgb 14.3 (13.5-17.5) g/dL Hct 41.3 (41-53) % MCV 93.8 (80-100) fL MCH 32.6 (26-34) PG MCHC 34.7 (30-36) % RDW 13.4 (11.6-14.8) % Plt Count 438 H (150-400) X10^3/uL Neut % (Auto) 73.1 (50-75) % Lymph % (Auto) 12.8 L (25-40) % [place] % (Auto) 10.1 (3-14) % Eos % (Auto) 3.3 (2-4) % Baso % (Auto) 0.7 (0-2) % Neut # (Auto) 8100 H (0247-3948) /uL Lymph # (Auto) 1400 (5408-4094) /uL [place] # (Auto) 1100 H (0-900) /uL Eos # (Auto) 400 (0-450) /uL Baso # (Auto) 100 (0-100) /uL Sodium 132 L (137-145) mmol/L Potassium 4.1 (3.4-5.1) mmol/L Chloride 96 L (98-107) mmol/L Carbon Dioxide 31 (22-32) mmol/L BUN 21 H (9-20) mg/dL Creatinine 0.58 L (0.66-1.25) mg/dL Estimated GFR > 60 (>60) mL/min BUN/Creatinine Ratio 36.2 H (6-22) Glucose 138 H (70-99) mg/dL Calcium 12.1 H (8.4-10.2) mg/dL Total Bilirubin 0.1 L (0.2-1.3) mg/dL AST 22 (17-59) IU/L ALT 13 (<50) IU/L Alkaline Phosphatase 81 (38-126) U/L Total Protein 7.1 (6.3-8.2) g/dL Albumin 3.8 (3.5-5.0) g/dL Globulin 3.3 (1.7-4.1) g/dL Albumin/Globulin Ratio 1.2 (1.0-2.8) SARS-CoV-2 (PCR) Negative (Negative) Influenza A (RT-PCR) Flu a negative (NEGATIVE) Influenza B (RT-PCR) Flu b negative (NEGATIVE) RSV (PCR) Negative (Negative) MDM Narrative Medical decision making narrative: Patient is a 60-year-old man with a history of squamous cell or counts and status post mandibulectomy who underwent infusion of Keytruda (pembrolizumab) presenting with 1 day history of congestion, rhinorrhea, cough. EMR Review: Prior ER encounters reviewed. Differential diagnosis: Angioedema, anaphylaxis, allergic reaction, urticaria, transfusion reaction, Keytruda adverse side effects, viral versus bacterial upper respiratory infection, allergies, other. Labs: CBC with leukocytosis (WBC 11.2) no left shift, no anemia, normal platelets. CBC with mild hyponatremia (Na 132), creatinine 0.58, viral swab negative for COVID, influenza, or RSV. Imaging: None EKG: None Consultation: None ED course: 1916 Patient evaluated, RT at bedside deep suctioning, will order methylprednisolone, Benadryl, DuoNeb, Pepcid 1919 Discussed code status with patient who states he is FULL CODE. 8894 Transfer center informed me that patient is followed at [facility] by heme/onc. Will continue to pursue ENT/hospitalist admission at [facility] if provider desired; however I opted to discussed case with [facility] Onc. [address] Munoz, patient received an infusion of Keytruda. On Internet search, angioedema is a rare but serious side effect and can occur as an immediate or delayed reaction. 11/19/25, 0100, Eduardo. 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 [facility] oncology had been contacted by Dr Huffman, willing to consult for transfer, awaiting call back from [facility] hospitalist. Assumed care. Will add IV Decadron, add IV TXA. Could consider adding IV FFP/bradykinin, hold for now. 0200, call back from [facility] to [facility], wait-listed at [facility], no beds currently available. Will look for alternate sites with ENT capability. 0300, case discussed with Dr Bangura ENT [place], agrees with the above treatments steroid antihistamines TXA, can add Vaponephrine Neb, agrees with CT soft tissue neck imaging to look for cancer or infection/abscess changes. 0530, still awaiting results CT. Repeat IV Solu-Medrol dose ordered. 0700, CT report still pending. Anticipate transfer to [facility] or other ENT capable tertiary facility. Signed out to Dr Stanton. 0700 Dr. Stanton, patient signed out to me by Dr. Clark I have seen evaluated patient myself. He is managing his airway and has for the past 12 hours but still has pretty significant angio edema. Not requiring oxygen at this time. Has received multiple medications. reports that 1 week ago he is able to talk and swallow some. He does have a PEG. However tongue swelling has gotten worse it does seem to wax and wane at times. He is unable to communicate with me now due to tongue swelling. However he is managing his secretions and is not requiring oxygen. CT soft tissue neck shows progressive metastatic disease in the neck with enlarging masses adjacent to the reconstructed left mandible proximal left sternocleidomastoid muscle left infratemporal fossa and in the submental region. Patient previously had surgery at [facility] attempting to transfer to [facility] 0930 Dr. Ochoa, Resident E[facility] [place], reviewed notes Dr. James did surgery back in August. She had my concerns about angio edema airway compromise. We will discuss with attending and return 945 Dr. Ochoa spoke with Dr. Diaz plan to transfer to [facility] Emergency Department for potential elective tracheostomy. <Vaibhav Clark MD - Last Filed: 11/19/25 17:05> Lab Data Labs: Lab Results 11/18/25 11/18/25 11/18/25 Range/Units 19:00 19:06 19:40 WBC 11.2 H (4.5-11.0) X10^3/uL RBC 4.40 L (4.5-5.9) X10^6/uL Hgb 14.3 (13.5-17.5) g/dL Hct 41.3 (41-53) % MCV 93.8 (80-100) fL MCH 32.6 (26-34) PG MCHC 34.7 (30-36) % RDW 13.4 (11.6-14.8) % Plt Count 438 H (150-400) X10^3/uL Neut % (Auto) 73.1 (50-75) % Lymph % (Auto) 12.8 L (25-40) % [place] % (Auto) 10.1 (3-14) % Eos % (Auto) 3.3 (2-4) % Baso % (Auto) 0.7 (0-2) % Neut # (Auto) 8100 H (5546-4103) /uL Lymph # (Auto) 1400 (2710-7400) /uL [place] # (Auto) 1100 H (0-900) /uL Eos # (Auto) 400 (0-450) /uL Baso # (Auto) 100 (0-100) /uL Sodium 132 L (137-145) mmol/L Potassium 4.1 (3.4-5.1) mmol/L Chloride 96 L (98-107) mmol/L Carbon Dioxide 31 (22-32) mmol/L BUN 21 H (9-20) mg/dL Creatinine 0.58 L (0.66-1.25) mg/dL Estimated GFR > 60 (>60) mL/min BUN/Creatinine Ratio 36.2 H (6-22) Glucose 138 H (70-99) mg/dL Calcium 12.1 H (8.4-10.2) mg/dL Total Bilirubin 0.1 L (0.2-1.3) mg/dL AST 22 (17-59) IU/L ALT 13 (<50) IU/L Alkaline Phosphatase 81 (38-126) U/L Total Protein 7.1 (6.3-8.2) g/dL Albumin 3.8 (3.5-5.0) g/dL Globulin 3.3 (1.7-4.1) g/dL Albumin/Globulin Ratio 1.2 (1.0-2.8) SARS-CoV-2 (PCR) Negative (Negative) Influenza A (RT-PCR) Flu a negative (NEGATIVE) Influenza B (RT-PCR) Flu b negative (NEGATIVE) RSV (PCR) Negative (Negative) MDM Narrative Medical decision making narrative: Patient is a 60-year-old man with a history of squamous cell or counts and status post mandibulectomy who underwent infusion of Keytruda (pembrolizumab) presenting with 1 day history of congestion, rhinorrhea, cough. EMR Review: Prior ER encounters reviewed. Differential diagnosis: Angioedema, anaphylaxis, allergic reaction, urticaria, transfusion reaction, Keytruda adverse side effects, viral versus bacterial upper respiratory infection, allergies, other. Labs: CBC with leukocytosis (WBC 11.2) no left shift, no anemia, normal platelets. CBC with mild hyponatremia (Na 132), creatinine 0.58, viral swab negative for COVID, influenza, or RSV. Imaging: None EKG: None Consultation: None ED course: 1916 Patient evaluated, RT at bedside deep suctioning, will order methylprednisolone, Benadryl, DuoNeb, Pepcid 1919 Discussed code status with patient who states he is FULL CODE. 0235 Transfer center informed me that patient is followed at [facility] by heme/onc. Will continue to pursue ENT/hospitalist admission at [facility] if provider desired; however I opted to discussed case with luca Onc. [address] Munoz, patient received an infusion of Keytruda. On Internet search, angioedema is a rare but serious side effect and can occur as an immediate or delayed reaction. 11/19/25, Eduardo More. 60-year-old male with history of squamous cell carcinoma status post left mandibulectomy August 2025, recent excisional biopsy right-sided neck mass, followed by Oncology at [facility] [place], had recent dose of Keytruda, with 5 days duration of waxing waning swelling of the tongue, without localized trauma, able to swallow his secretions, had initial inability to speak due to tongue edema but with initial IV steroids and antihistamine treatments is having some improvement where he can verbalize some sounds, seems to be handling his secretions. [facility] oncology had been contacted by Dr Huffman, willing to consult for transfer, awaiting call back from [facility] hospitalist. Assumed care. Will add IV Decadron, add IV TXA. Could consider adding IV FFP/bradykinin, hold for now. 0200, call back from [facility] to [facility], wait-listed at [facility], no beds currently available. Will look for alternate sites with ENT capability. 5 days swelling seems less typical for angioedema, consider infection, recurrence cancer, drainable fluid collection, will get CT Soft Tissue Neck. 0300, case discussed with Dr Bangura ENT [place], agrees with the above treatments steroid antihistamines TXA, can add Vaponephrine Neb, agrees with CT soft tissue neck imaging to look for cancer or infection/abscess changes. 0530, still awaiting results CT. Repeat IV Solu-Medrol dose ordered. 07, CT report still pending. Anticipate transfer to [facility] or other ENT capable tertiary facility. Signed out to Dr Stanton. 07 Dr. Stanton, patient signed out to me by Dr. Clark I have seen evaluated patient myself. He is managing his airway and has for the past 12 hours but still has pretty significant angio edema. Not requiring oxygen at this time. Has received multiple medications. reports that 1 week ago he is able to talk and swallow some. He does have a PEG. However tongue swelling has gotten worse it does seem to wax and wane at times. He is unable to communicate with me now due to tongue swelling. However he is managing his secretions and is not requiring oxygen. CT soft tissue neck shows progressive metastatic disease in the neck with enlarging masses adjacent to the reconstructed left mandible proximal left sternocleidomastoid muscle left infratemporal fossa and in the submental region. Patient previously had surgery at [facility] attempting to transfer to [facility] 0930 Dr. Ochoa, Resident ENT [place], reviewed notes Dr. James did surgery back in August. She had my concerns about angio edema airway compromise. We will discuss with attending and return 945 Dr. Ochoa spoke with Dr. Diaz plan to transfer to [facility] Emergency Department for potential elective tracheostomy. <Holley Stanton, DO - Last Filed: 11/19/25 11:15> Lab Data Labs: Lab Results 11/18/25 11/18/25 11/18/25 Range/Units 19:00 19:06 19:40 WBC 11.2 H (4.5-11.0) X10^3/uL RBC 4.40 L (4.5-5.9) X10^6/uL Hgb 14.3 (13.5-17.5) g/dL Hct 41.3 (41-53) % MCV 93.8 (80-100) fL MCH 32.6 (26-34) PG MCHC 34.7 (30-36) % RDW 13.4 (11.6-14.8) % Plt Count 438 H (150-400) X10^3/uL Neut % (Auto) 73.1 (50-75) % Lymph % (Auto) 12.8 L (25-40) % [place] % (Auto) 10.1 (3-14) % Eos % (Auto) 3.3 (2-4) % Baso % (Auto) 0.7 (0-2) % Neut # (Auto) 8100 H (4352-2335) /uL Lymph # (Auto) 1400 (5251-7380) /uL [place] # (Auto) 1100 H (0-900) /uL Eos # (Auto) 400 (0-450) /uL Baso # (Auto) 100 (0-100) /uL Sodium 132 L (137-145) mmol/L Potassium 4.1 (3.4-5.1) mmol/L Chloride 96 L (98-107) mmol/L Carbon Dioxide 31 (22-32) mmol/L BUN 21 H (9-20) mg/dL Creatinine 0.58 L (0.66-1.25) mg/dL Estimated GFR > 60 (>60) mL/min BUN/Creatinine Ratio 36.2 H (6-22) Glucose 138 H (70-99) mg/dL Calcium 12.1 H (8.4-10.2) mg/dL Total Bilirubin 0.1 L (0.2-1.3) mg/dL AST 22 (17-59) IU/L ALT 13 (<50) IU/L Alkaline Phosphatase 81 (38-126) U/L Total Protein 7.1 (6.3-8.2) g/dL Albumin 3.8 (3.5-5.0) g/dL Globulin 3.3 (1.7-4.1) g/dL Albumin/Globulin Ratio 1.2 (1.0-2.8) SARS-CoV-2 (PCR) Negative (Negative) Influenza A (RT-PCR) Flu a negative (NEGATIVE) Influenza B (RT-PCR) Flu b negative (NEGATIVE) RSV (PCR) Negative (Negative) MDM Narrative Medical decision making narrative: Patient is a 60-year-old man with a history of squamous cell or counts and status post mandibulectomy who underwent infusion of Keytruda (pembrolizumab) presenting with 1 day history of congestion, rhinorrhea, cough. EMR Review: Prior ER encounters reviewed. Differential diagnosis: Angioedema, anaphylaxis, allergic reaction, urticaria, transfusion reaction, Keytruda adverse side effects, viral versus bacterial upper respiratory infection, allergies, other. Labs: CBC with leukocytosis (WBC 11.2) no left shift, no anemia, normal platelets. CBC with mild hyponatremia (Na 132), creatinine 0.58, viral swab negative for COVID, influenza, or RSV. Imaging: None EKG: None Consultation: None ED course: 1916 Patient evaluated, RT at bedside deep suctioning, will order methylprednisolone, Benadryl, DuoNeb, Pepcid 0685 Transfer center informed me that patient is followed at [facility] by heme/onc. Will continue to pursue ENT/hospitalist admission at [facility] if provider desired; however I opted to discussed case with [facility]. [address] Munoz, patient received an infusion of Keytruda. On Internet search, angioedema is a rare but serious side effect and can occur as an immediate or delayed reaction. 11/19/25, Eduardo More. 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 [facility] oncology had been contacted by Dr Huffman, willing to consult for transfer, awaiting call back from [facility] hospitalist. Assumed care. Will add IV Decadron, add IV TXA. Could consider adding IV FFP/bradykinin, hold for now. 0200, call back from [facility] to [facility], wait-listed at [facility], no beds currently available. Will look for alternate sites with ENT capability. 0300, case discussed with Dr Bangura ENT [place], agrees with the above treatments steroid antihistamines TXA, can add Vaponephrine Neb, agrees with CT soft tissue neck imaging to look for cancer or infection/abscess changes. 0530, still awaiting results CT. Repeat IV Solu-Medrol dose ordered. 07, CT report still pending. Anticipate transfer to [facility] or other ENT capable tertiary facility. Signed out to Dr Stanton. 0700 Dr. Stanton, patient signed out to me by Dr. Clark I have seen evaluated patient myself. He is managing his airway and has for the past 12 hours but still has pretty significant angio edema. Not requiring oxygen at this time. Has received multiple medications. reports that 1 week ago he is able to talk and swallow some. He does have a PEG. However tongue swelling has gotten worse it does seem to wax and wane at times. He is unable to communicate with me now due to tongue swelling. However he is managing his secretions and is not requiring oxygen. CT soft tissue neck shows progressive metastatic disease in the neck with enlarging masses adjacent to the reconstructed left mandible proximal left sternocleidomastoid muscle left infratemporal fossa and in the submental region. Patient previously had surgery at [facility] attempting to transfer to [facility] 0930 Dr. Ochoa, Resident ENT [place], reviewed notes Dr. James did surgery back in August. She had my concerns about angio edema airway compromise. We will discuss with attending and return 945 Dr. Ochoa spoke with Dr. Diaz plan to transfer to [facility] Emergency Department for potential elective tracheostomy. Critical Care Time <Holley Donovanmaritza, DO - Last Filed: 11/19/25 11:15> Critical Care Time Critical Care Time: Yes Total Critical Care Time: 40 Attestation: The high probability of a clinically significant, sudden or life threatening deterioration of the respiratory airway system(s) required my full and direct attention, intervention and personal management. The aggregate critical care time was 40 minutes. This time is in addition to time spent performing reported procedures but includes the following: [x] Data Review and interpretation [x] Patient assessment and monitoring of vital signs [x] Documentation [x] Medication orders and management Discharge Plan Departure Patient Disposition: [facility] Clinical Impression: Angioedema, Oral cancer, Shortness of breath Prescriptions: No Action hydrocodone-acetaminophen 5-325 mg tablet 1 tab PO Q8H PRN (Reason: pain) Qty: 30 0RF doxycycline monohydrate 100 mg tablet 100 mg PO BID oxycodone 5 mg tablet 5 mg PO 4XD PRN (DME) Disabled Parking Permit See Rx Instructions .ROUTE .MEDSUPPLY Qty: 1 0RF Rx Instructions: I find this person to be disabled ondansetron 4 mg tablet,disintegrating 4 mg PO Q6H PRN (Reason: nausea and vomiting) Qty: 30 2RF hydromorphone [Dilaudid] 2 mg tablet 1 - 2 mg PO Q8H PRN (Reason: pain) Qty: 30 0RF Keytruda 25 mg/mL solution 200 mg IV Q3W Rx Instructions: administer over 30 mins-BEING DONE AT [facility] WITH ONCOLOGY Referrals: Sunshine Snow MD [Primary Care Provider, Family Practice]
--- NOTE | 2025-11-18 18:56 | DI.RAD.S_ITS ---
PROCEDURE: XR CHEST 1V INDICATIONS: diminished lung sounds. TECHNIQUE: One view of the chest was acquired. COMPARISON: Merged With [facility], CR, XR CHEST 1V, 11/04/2025, 10:49. FINDINGS: Surgical changes and devices: Right Port-A-Cath a distal tip projecting over the mid SVC. Lungs and pleura: Lungs are clear. No pleural effusions or pneumothorax. Mediastinum: Mediastinal contours appear normal. Heart size is normal. Bones and chest wall: No suspicious bony lesions. Overlying soft tissues appear unremarkable. IMPRESSION: No acute pulmonary process. Dictated by: Kathie Jorgensen M.D. on 11/18/2025 at 21:24 Approved by: Kathie Jorgensen M.D. on 11/18/2025 at 21:29
[2025-11-18 19:20] LABS: Add Manual Diff / Slide Review NO; Hematocrit 41.3 % (41-53); Hemoglobin 14.3 g/dL (13.5-17.5); Lymphocytes Absolute Auto 1400 /uL (1100-4500); Mean Corpuscular HGB Conc 34.7 % (30-36); Mean Corpuscular Hemoglobin 32.6 PG (26-34); Mean Corpuscular Volume 93.8 fL (80-100); Platelet Count 438 X10^3/uL (150-400)
[2025-11-18] MEDS: diphenhydrAMINE 50 MG/ML VIAL 25 MG IV (19:40)
[2025-11-18 19:41] LABS: COVID-19 CEPHEID 4-PLEX PCR Negative (Negative); Influenza A - CEPHEID Flu A NEGATIVE (NEGATIVE); Influenza B - CEPHEID Flu B NEGATIVE (NEGATIVE)
[2025-11-18] MEDS: methylPREDNISolone succ 40 MG/ML VIAL INJ (19:41)
[2025-11-18 19:59] LABS: Alanine Aminotransferase 13 IU/L (<50); Albumin 3.8 g/dL (3.5-5.0); Albumin Globulin Ratio 1.2 (1.0-2.8); Alkaline Phosphatase 81 U/L (38-126); Blood Urea Nitrogen 21 mg/dL (9-20); Calcium 12.1 mg/dL (8.4-10.2); Carbon Dioxide 31 mmol/L (22-32); Chloride 96 mmol/L (98-107); Estimated Glomerular Filt Rate > 60 mL/min (>60); Globulin 3.3 g/dL (1.7-4.1); Glucose 138 mg/dL (70-99); HEMOLYSIS < 15 (0-50); Potassium 4.1 mmol/L (3.4-5.1); Sodium 132 mmol/L (137-145); Total Protein 7.1 g/dL (6.3-8.2)
[2025-11-18] MEDS: ALBUTEROL/IPRATROPIUM 3 ML AMPUL 9 ML INH (22:24)
[2025-11-19] VITALS (10 sets, daily range): BP systolic 121–138; BP diastolic 76–93; PULSE 60–99; RESP 14–20; O2SAT 95–100
[2025-11-19] MEDS: FAMOTIDINE 20 MG/2 ML VIAL IV (02:17)
--- NOTE | 2025-11-19 02:33 | DI.CT.S_ITS ---
PROCEDURE: CT SOFT TISSUE NECK W CON INDICATIONS: angioedema, prior bx, prior SCC TECHNIQUE: After the administration of intravenous contrast, 3.0 mm axial sections acquired from the sella to the aortic arch. Additional oblique axial 3.0 mm sections acquired through the pharynx. 3 mm thick coronal and sagittal reformats were generated. For radiation dose reduction, the following was used: automated exposure control. COMPARISON: [facility], CT, CT SOFT TISSUE NECK W CON, 11/04/2025, 14:06. FINDINGS: Image quality: Diagnostic The patient is status post left mandibulectomy and fibular reconstruction. There are nodular soft tissue lesions adjacent to the reconstructed left mandible, which have increased compared to prior study and may represent clover metastasis or residual disease. Soft tissue mass associated with the proximal aspect of the left sternocleidomastoid muscle with central hypoattenuation suggestive of necrosis measures 3.5 x 2.7 cm, which has increased in size from prior exam. Large soft tissue mass in the submental region approaching the skin with prominent central defect. This appears to extend posteriorly to associated with the hyoid bone, which is partially eroded. This mass has increased from prior study as well. Soft tissue mass in the left infratemporal fossa has slightly increased from prior. Drew in the posterior aspect of the left maxillary sinus and lateral pterygoid have not significantly changed compared to prior. Enlarged right cervical lymph nodes, most notable at the level of the thyroid cartilage are similar to prior. Visualized portions of the brain are unremarkable. Orbits are unremarkable. Similar numerous pulmonary nodule metastasis are similar compared to prior. IMPRESSION: Compared to prior CT 11/04/2025, progressive metastatic disease in the neck with enlarging masses adjacent to the reconstructed left mandible, proximal left sternocleidomastoid, left infratemporal fossa and submental region. Stable right cervical lymphadenopathy. Stable pulmonary nodules consistent with metastatic disease. Findings are concordant with preliminary interpretation provided by [facility]. Approved by: Silva Oh M.D.,Ph.D. on 11/19/2025 at 8:26
[2025-11-19] MEDS: RACEPINEPHRINE 0.5 ML NEB INH (03:24)
[2025-11-19] MEDS: TRANEXAMIC ACID 1,000 MG in SODIUM CHLORIDE 0.9% 100 ML 200 MG IV (04:45)
--- NOTE | 2025-11-19 04:54 | PC.NURSE ---
pt declining vital signs at this time
--- NOTE | 2025-11-19 05:00 | PC.NURSE ---
pt placed on hospital bed and family given lounge chair for comfort
[2025-11-19] MEDS: methylPREDNISolone succ 125 MG/2 ML VIAL IV (05:50)
[2025-11-19] MEDS: SODIUM CHLORIDE 0.9% 1,000 ML 100 ML IV (08:42)
== END 2025-11-19 10:51 | disposition short-term general hospital (02) ==
PROVIDERS: Student in an Organized Health Care Education/Training Program; Emergency Provider Emergency Medicine; PCP Family Medicine
DX: T78.3XXA Angioneurotic edema, initial encounter (principal); C06.9 Malignant neoplasm of mouth, unspecified; R09.81 Nasal congestion; J34.89 Other specified disorders of nose and nasal sinuses; R05.9 Cough, unspecified; Z87.891 Personal history of nicotine dependence; X58.XXXA Exposure to other specified factors, initial encounter
CPT/HCPCS: 36415; 70491; 71045; 80053; 85025; 87637; 94640; 96361; 96365; 96366; 96375; 96376; 99284; J1100; J1171; J1200; J2919; J7030; J7050; Q9967